=== PATIENT | male | born 1985 | race Caucasian/White ===

== ENCOUNTER 2018-07-21 11:50 | Emergency (ER) | payer BC, OTHER ==
[2018-07-21] MEDS: AMPICILLIN/SULBAC 1.5 GM INJ IM ×2 (12:30→13:21)
[2018-07-21] MEDS: IBUPROFEN 600 MG TAB PO (12:53)
[2018-07-21] MEDS: DIPHTH/TET/ACEL PERTUSS (ADULT) 0.5 ML VIAL IM* (12:54)
[2018-07-21] MEDS: LIDOCAINE 1% (MDV) 20 ML INJ SC (13:22)
== END 2018-07-21 14:14 | disposition home or self-care (01) ==
LOC: FTE 11:50
DX: S61.411A Laceration without foreign body of right hand, initial encounter (principal); W50.3XXA Accidental bite by another person, initial encounter; Y92.9 Unspecified place or not applicable; Z23 Encounter for immunization
CPT/HCPCS: 90471; 90715; 96372; 99284-25